=== PATIENT | male | born 1955 | race Caucasian/White ===

== ENCOUNTER 2025-05-02 12:17 | Inpatient (IN) | payer OTHER ==
[2025-05-02 13:14] LABS: #Basophils 0.04 10x3/uL (0.0-0.2); #Eosinophils 0.07 10x3/uL (0.0-0.7); #Monocytes 0.87 10x3/uL (0.11-0.59); #Neutrophils 9.65 10x3/uL (1.40-6.50); %Basophils 0.3 % (0.0-1.0); %Eosinophils 0.5 % (0.0-10.0); %Lymphocytes 23.4 % (21.0-51.0); %Monocytes 6.2 % (0.0-10.0); %Neutrophils 69.1 % (42.0-75.0); Hematocrit 45.9 % (42.0-52.0); Hemoglobin 15.9 g/dL (14.0-18.0); Mean Corpuscular Hemoglobin 31.7 pg (27.0-31.0); Mean Corpuscular Volume 91.6 fL (78.0-98.0); Platelet Count 126 10x3/uL (130-400); Red Blood Cell (RBC) Count 5.01 mill/uL (4.70-6.10); White Blood Cell (WBC) Count 13.97 10x3/uL (4.8-10.8)
[2025-05-02 13:36] LABS: ALT (SGPT) 380 U/L (Less than 45); AST (SGOT) 225 U/L (11-34); Albumin 3.7 g/dL (3.1-4.5); Alkaline Phosphatase 49 U/L (40-110); Bilirubin, Direct 3.0 mg/dL (0.1-0.3); Bilirubin, Total 4.1 mg/dL (0.3-1.2)
[2025-05-02 13:37] LABS: Anion Gap 14 mmol/L (10-20); BUN (Urea Nitrogen) 29 mg/dL (8.4-25.7); Calc. Creatinine Clearance 0 mL/min (70-130); Calcium 9.1 mg/dL (7.8-10.44); Carbon Dioxide 19 mmol/L (23-31); Chloride 107 mmol/L (98-107); Glucose 132 mg/dL (80-115); Potassium 3.8 mmol/L (3.5-5.1); Sodium 136 mmol/L (136-145)
[2025-05-02 13:37] LABS: Bacteria/HPF None Seen HPF (None Seen); CAUTI Indications for Culture Acute Hematuria; Glucose, Urine (Dipstick) Normal (Negative); Leukocyte Negative Leu/uL (Negative); Protein, Urine (Dipstick) Negative (Neg-Trace); Specific Gravity, Urine 1.017 (1.002-1.036); WBC/HPF 0-3 HPF (0-3)
[2025-05-02 13:41] LABS: Urine Culture Reflex No No
[2025-05-02 13:47] LABS: Lipase 1321 U/L (8-78)
[2025-05-02] MEDS ORDERED: Guaifenesin DM 100-10/5 ML UDCUP PO PRN (15:20)
[2025-05-02] MEDS ORDERED: Senokot S 8.6-50 MG TAB PO PRN (15:20)
[2025-05-02] MEDS ORDERED: Ondansetron PF 4 MG/2 ML Vial IVP PRN (15:20)
[2025-05-02] MEDS ORDERED: PROPOFOL 40 ML ONE (16:34)
[2025-05-02] MEDS ORDERED: Rocuronium Bromide 10 MG/ML (10ML VIAL) ONE (16:40)
[2025-05-02] MEDS ORDERED: Lidocaine 1% PF 5 ML VIAL ONE (16:40)
[2025-05-02] MEDS ORDERED: SUCCINYLCHOLINE/SOD CL,ISO/PF 200 MG/10 ML SYRINGE FS ONE (16:52)
[2025-05-02] MEDS ORDERED: PHENYLEPHRINE-NS 100 MCG/ML 10 ML SYRINGE ONE (16:58)
[2025-05-02] MEDS ORDERED: SUGAMMADEX SODIUM 200 MG/2 ML VIAL ONE ×2 (17:41→17:53)
[2025-05-02] MEDS ORDERED: Meperidine HCl/PF 25 MG (1 mL) VIAL ONE (17:52)
[2025-05-02] MEDS ORDERED: Electrolyte Replacement Protocol 1 EACH FS SCH (18:45)
[2025-05-02 19:11] LABS: #Basophils Less than 0.03 10x3/uL (0.0-0.2); #Eosinophils Less than 0.03 10x3/uL (0.0-0.7); #Monocytes 0.16 10x3/uL (0.11-0.59); #Neutrophils 3.74 10x3/uL (1.40-6.50); %Basophils 0.2 % (0.0-1.0); %Eosinophils 0.2 % (0.0-10.0); %Lymphocytes 30.4 % (21.0-51.0); %Monocytes 2.8 % (0.0-10.0); %Neutrophils 65.7 % (42.0-75.0); Hematocrit 46.5 % (42.0-52.0); Hemoglobin 16.0 g/dL (14.0-18.0); Mean Corpuscular Hemoglobin 31.9 pg (27.0-31.0); Mean Corpuscular Volume 92.6 fL (78.0-98.0); Platelet Count 123 10x3/uL (130-400); Red Blood Cell (RBC) Count 5.02 mill/uL (4.70-6.10); White Blood Cell (WBC) Count 5.69 10x3/uL (4.8-10.8)
[2025-05-02 19:31] LABS: ALT (SGPT) 382 U/L (Less than 45); AST (SGOT) 362 U/L (11-34); Albumin 3.3 g/dL (3.1-4.5); Alkaline Phosphatase 91 U/L (40-110); Anion Gap 23 mmol/L (10-20); BUN (Urea Nitrogen) 36 mg/dL (8.4-25.7); Bilirubin, Total 6.6 mg/dL (0.3-1.2); Calc. Creatinine Clearance 0 mL/min (70-130); Calcium 8.9 mg/dL (7.8-10.44); Carbon Dioxide 17 mmol/L (23-31); Chloride 103 mmol/L (98-107); Globulin 2.7 g/dL (2.4-3.5); Glucose 159 mg/dL (80-115); Magnesium 1.5 mg/dL (1.6-2.6); Potassium 3.7 mmol/L (3.5-5.1); Sodium 139 mmol/L (136-145)
[2025-05-02 19:48] VITALS: BMI 40.6
[2025-05-02] MEDS: Ketorolac Tromethamine 30 MG (1 mL) VIAL IVP PRN (20:13)
[2025-05-02] MEDS: Multivit, Therapeutic 1 TAB PO SCH (20:15)
[2025-05-02] MEDS: Folic Acid 1 MG TAB PO SCH (20:15)
[2025-05-02] MEDS: Magnesium 2 GM/50 ML(in water) 2 GM in Premix 1 BAG IVPB SCH (20:17)
[2025-05-03 03:24] LABS: #Basophils Less than 0.03 10x3/uL (0.0-0.2); #Eosinophils Less than 0.03 10x3/uL (0.0-0.7); #Monocytes 1.38 10x3/uL (0.11-0.59); #Neutrophils 12.43 10x3/uL (1.40-6.50); %Basophils 0.1 % (0.0-1.0); %Eosinophils 0.1 % (0.0-10.0); %Lymphocytes 17.3 % (21.0-51.0); %Monocytes 8.1 % (0.0-10.0); %Neutrophils 73.3 % (42.0-75.0); Hematocrit 43.2 % (42.0-52.0); Hemoglobin 14.6 g/dL (14.0-18.0); Mean Corpuscular Hemoglobin 31.8 pg (27.0-31.0); Mean Corpuscular Volume 94.1 fL (78.0-98.0); Platelet Count 118 10x3/uL (130-400); Red Blood Cell (RBC) Count 4.59 mill/uL (4.70-6.10); White Blood Cell (WBC) Count 16.96 10x3/uL (4.8-10.8)
[2025-05-03 04:08] LABS: ALT (SGPT) 401 U/L (Less than 45); AST (SGOT) 393 U/L (11-34); Albumin 3.1 g/dL (3.1-4.5); Alkaline Phosphatase 66 U/L (40-110); Anion Gap 17 mmol/L (10-20); BUN (Urea Nitrogen) 39 mg/dL (8.4-25.7); Bilirubin, Total 3.2 mg/dL (0.3-1.2); Calc. Creatinine Clearance 56 mL/min (70-130); Calcium 8.5 mg/dL (7.8-10.44); Carbon Dioxide 22 mmol/L (23-31); Cardiac Risk 27.4 (Less than 4.5); Chloride 102 mmol/L (98-107); Cholesterol 137 mg/dl (< 200 Desired); Globulin 2.6 g/dL (2.4-3.5); Glucose 149 mg/dL (80-115); HDL Cholesterol 5 mg/dL (>60 Neg Risk); Potassium 3.9 mmol/L (3.5-5.1); Sodium 137 mmol/L (136-145); Triglycerides 465 mg/dL (Less than 150)
[2025-05-03] MEDS ORDERED: HYDROcodone/Acetaminophen 5/325 mg Tablet PO PRN (08:10)
[2025-05-03] MEDS ORDERED: Enoxaparin 40 MG (0.4 mL) SYRINGE SC SCH (09:00)
[2025-05-03] MEDS ORDERED: hydrALAZINE 20 MG/ML VIAL SLOW IVP PRN (13:28)
[2025-05-03] MEDS ORDERED: Bupivacaine 0.25% HCL 30 ML VIAL ONE (17:32)
[2025-05-03] MEDS ORDERED: PROPOFOL 20 ML ONE (17:56)
[2025-05-03] MEDS ORDERED: fentaNYL PF 100 MCG/2 ML SYRINGE ONE (17:56)
[2025-05-03] MEDS ORDERED: Ondansetron PF 4 MG/2 ML Vial ONE (18:13)
[2025-05-03] MEDS ORDERED: Ketorolac Tromethamine 30 MG (1 mL) VIAL ONE (20:34)
[2025-05-03 21:20] LABS: ALT (SGPT) 272 U/L (Less than 45); AST (SGOT) 179 U/L (11-34); Albumin 2.9 g/dL (3.1-4.5); Alkaline Phosphatase 56 U/L (40-110); Anion Gap 17 mmol/L (10-20); BUN (Urea Nitrogen) 33 mg/dL (8.4-25.7); Bilirubin, Total 1.8 mg/dL (0.3-1.2); Calc. Creatinine Clearance 82 mL/min (70-130); Calcium 8.1 mg/dL (7.8-10.44); Carbon Dioxide 17 mmol/L (23-31); Chloride 109 mmol/L (98-107); Globulin 2.9 g/dL (2.4-3.5); Glucose 168 mg/dL (80-115); Potassium 4.0 mmol/L (3.5-5.1); Sodium 139 mmol/L (136-145)
[2025-05-04] MEDS: Famotidine 20 MG TAB PO SCH (01:29)
[2025-05-04 07:34] LABS: ALT (SGPT) 230 U/L (Less than 45); AST (SGOT) 116 U/L (11-34); Albumin 2.8 g/dL (3.1-4.5); Alkaline Phosphatase 53 U/L (40-110); Anion Gap 13 mmol/L (10-20); BUN (Urea Nitrogen) 34 mg/dL (8.4-25.7); Bilirubin, Total 1.4 mg/dL (0.3-1.2); Calc. Creatinine Clearance 85 mL/min (70-130); Calcium 7.9 mg/dL (7.8-10.44); Carbon Dioxide 23 mmol/L (23-31); Chloride 104 mmol/L (98-107); Globulin 2.8 g/dL (2.4-3.5); Glucose 193 mg/dL (80-115); Lipase 158 U/L (8-78); Magnesium 2.3 mg/dL (1.6-2.6); Potassium 3.7 mmol/L (3.5-5.1); Sodium 136 mmol/L (136-145)
[2025-05-04 07:35] LABS: #Basophils Less than 0.03 10x3/uL (0.0-0.2); #Eosinophils Less than 0.03 10x3/uL (0.0-0.7); #Monocytes 0.77 10x3/uL (0.11-0.59); #Neutrophils 9.92 10x3/uL (1.40-6.50); %Basophils 0.1 % (0.0-1.0); %Eosinophils 0.0 % (0.0-10.0); %Lymphocytes 23.9 % (21.0-51.0); %Monocytes 5.4 % (0.0-10.0); %Neutrophils 70.0 % (42.0-75.0); Hematocrit 38.6 % (42.0-52.0); Hemoglobin 13.3 g/dL (14.0-18.0); Mean Corpuscular Hemoglobin 31.8 pg (27.0-31.0); Mean Corpuscular Volume 92.3 fL (78.0-98.0); Platelet Count 113 10x3/uL (130-400); Red Blood Cell (RBC) Count 4.18 mill/uL (4.70-6.10); White Blood Cell (WBC) Count 14.20 10x3/uL (4.8-10.8)
[2025-05-04 07:56] LABS: CRP,High Sensitivity (Inhouse) 25.01 mg/dL (< or = 0.5)
[2025-05-04] MEDS: Ezetimibe 10 MG TAB PO SCH (07:58)
[2025-05-04] MEDS: Simvastatin 10 MG TAB PO SCH (07:59)
[2025-05-04 08:41] LABS: Burr Cells SLIGHT = 2-5 cells HPF (0-1); Platelet Adequacy Comment Platelets Decreased; Polychromasia SLIGHT = 2-3 cells HPF (0-2)
[2025-05-04] MEDS ORDERED: Non-Formulary Item 1 EACH (Fenofibrate [Lipofen] 150 MG Capsule) PO SCH (09:00)
[2025-05-05 06:24] LABS: ALT (SGPT) 157 U/L (Less than 45); AST (SGOT) 60 U/L (11-34); Albumin 2.7 g/dL (3.1-4.5); Alkaline Phosphatase 57 U/L (40-110); Anion Gap 14 mmol/L (10-20); BUN (Urea Nitrogen) 36 mg/dL (8.4-25.7); Bilirubin, Total 1.1 mg/dL (0.3-1.2); Calc. Creatinine Clearance 78 mL/min (70-130); Calcium 8.7 mg/dL (7.8-10.44); Carbon Dioxide 30 mmol/L (23-31); Chloride 102 mmol/L (98-107); Globulin 3.0 g/dL (2.4-3.5); Glucose 133 mg/dL (80-115); Potassium 4.4 mmol/L (3.5-5.1); Sodium 142 mmol/L (136-145)
[2025-05-05 06:34] LABS: #Basophils 0.04 10x3/uL (0.0-0.2); #Eosinophils 0.03 10x3/uL (0.0-0.7); #Monocytes 1.24 10x3/uL (0.11-0.59); #Neutrophils 9.38 10x3/uL (1.40-6.50); %Basophils 0.3 % (0.0-1.0); %Eosinophils 0.2 % (0.0-10.0); %Lymphocytes 29.8 % (21.0-51.0); %Monocytes 8.0 % (0.0-10.0); %Neutrophils 60.7 % (42.0-75.0); Hematocrit 41.3 % (42.0-52.0); Hemoglobin 13.7 g/dL (14.0-18.0); Mean Corpuscular Hemoglobin 31.5 pg (27.0-31.0); Mean Corpuscular Volume 94.9 fL (78.0-98.0); Platelet Count 127 10x3/uL (130-400); Red Blood Cell (RBC) Count 4.35 mill/uL (4.70-6.10); White Blood Cell (WBC) Count 15.46 10x3/uL (4.8-10.8)
[2025-05-05] MEDS: Thiamine 100 MG TAB PO SCH (20:54)
[2025-05-06 06:06] LABS: #Basophils 0.05 10x3/uL (0.0-0.2); #Eosinophils 0.07 10x3/uL (0.0-0.7); #Monocytes 1.32 10x3/uL (0.11-0.59); #Neutrophils 7.72 10x3/uL (1.40-6.50); %Basophils 0.4 % (0.0-1.0); %Eosinophils 0.5 % (0.0-10.0); %Lymphocytes 28.6 % (21.0-51.0); %Monocytes 9.9 % (0.0-10.0); %Neutrophils 57.8 % (42.0-75.0); Hematocrit 40.7 % (42.0-52.0); Hemoglobin 13.7 g/dL (14.0-18.0); Mean Corpuscular Hemoglobin 32.0 pg (27.0-31.0); Mean Corpuscular Volume 95.1 fL (78.0-98.0); Platelet Count 135 10x3/uL (130-400); Red Blood Cell (RBC) Count 4.28 mill/uL (4.70-6.10); White Blood Cell (WBC) Count 13.35 10x3/uL (4.8-10.8)
[2025-05-06 07:06] LABS: ALT (SGPT) 98 U/L (Less than 45); AST (SGOT) 32 U/L (11-34); Albumin 2.6 g/dL (3.1-4.5); Alkaline Phosphatase 56 U/L (40-110); Anion Gap 15 mmol/L (10-20); BUN (Urea Nitrogen) 22 mg/dL (8.4-25.7); Bilirubin, Total 1.2 mg/dL (0.3-1.2); Calc. Creatinine Clearance 93 mL/min (70-130); Calcium 8.5 mg/dL (7.8-10.44); Carbon Dioxide 20 mmol/L (23-31); Chloride 107 mmol/L (98-107); Globulin 3.0 g/dL (2.4-3.5); Glucose 125 mg/dL (80-115); Potassium 3.5 mmol/L (3.5-5.1); Sodium 138 mmol/L (136-145)
[2025-05-06] MEDS: Sodium Bicarbonate Tab 325 MG TAB PO SCH (08:21)
[2025-05-06] MEDS ORDERED: Acetaminophen 325 MG TAB PO SCH (11:30)
[2025-05-06 12:13] VITALS: BP 156/96; TEMP 99.7
== END 2025-05-06 12:12 | disposition home or self-care (01) | DRG 853 ==
LOC: ERS 12:17 → SDC 16:02 → T4-B 16:03
PROVIDERS: ADMIT Hospitalist; ATTEND Internal Medicine
PROC: 0FC98ZZ Extirpation of Matter from Common Bile Duct, Via Natural or Artificial Opening Endoscopic (ICD-10-PCS; principal; 2025-05-02)
PROC: 0FC78ZZ Extirpation of Matter from Common Hepatic Duct, Via Natural or Artificial Opening Endoscopic (ICD-10-PCS; 2025-05-02)
PROC: 3E03329 Introduction of Other Anti-infective into Peripheral Vein, Percutaneous Approach (ICD-10-PCS; 2025-05-02)
PROC: 0FT44ZZ Resection of Gallbladder, Percutaneous Endoscopic Approach (ICD-10-PCS; 2025-05-03)
PROC: 8E0W4CZ Robotic Assisted Procedure of Trunk Region, Percutaneous Endoscopic Approach (ICD-10-PCS; 2025-05-03)
PROC: 3E033XZ Introduction of Vasopressor into Peripheral Vein, Percutaneous Approach (ICD-10-PCS; 2025-05-03)
DX: A41.59 Other Gram-negative sepsis (principal); K85.10 Biliary acute pancreatitis without necrosis or infection; K80.66 Calculus of gallbladder and bile duct with acute and chronic cholecystitis without obstruction; N17.9 Acute kidney failure, unspecified; Z68.41 Body mass index [BMI] 40.0-44.9, adult; E87.21 Acute metabolic acidosis; R65.20 Severe sepsis without septic shock; E78.5 Hyperlipidemia, unspecified; E66.9 Obesity, unspecified; N40.0 Benign prostatic hyperplasia without lower urinary tract symptoms; E86.9 Volume depletion, unspecified; I12.9 Hypertensive chronic kidney disease with stage 1 through stage 4 chronic kidney disease, or unspecified chronic kidney disease; N18.9 Chronic kidney disease, unspecified; Z79.899 Other long term (current) drug therapy; Z98.890 Other specified postprocedural states; Z88.8 Allergy status to other drugs, medicaments and biological substances; K66.0 Peritoneal adhesions (postprocedural) (postinfection); K76.0 Fatty (change of) liver, not elsewhere classified; E80.6 Other disorders of bilirubin metabolism; R80.9 Proteinuria, unspecified; R10.11 Right upper quadrant pain
CPT/HCPCS: 36415; 74330; 76705; 80048; 80053; 80061; 80076; 81001; 82043; 82550; 83036; 83690; 83735; 84100; 84300; 85025; 86141; 87040; 87077; 87149; 87186; 88304; 96374; A4217; A6258; C1713; J0169; J0665; J1100; J1885; J2175; J2250; J2405; J2543; J2704; J3010; J3411; J3475; J7030; J7620; Q9967; S2900